=== PATIENT | female | born 1990 | race Asian ===

== ENCOUNTER 2017-01-16 00:01 | Inpatient (IN) | payer SELFPAY ==
[~2017-01-16] VITALS: Ht 162.6 cm; Wt 65.3 kg
[2017-01-16 01:00] VITALS: BP 114/74
[2017-01-16] MEDS ORDERED: CARBOPROST 250 MCG/ML AMP IM PRN (01:00)
[2017-01-16] MEDS ORDERED: OXYTOCIN 10 UNITS/ML VIAL IM SCH (01:00)
[2017-01-16] MEDS ORDERED: OXYTOCIN 20 UNITS/LR PREMIX 1,000 ML IV SCH (01:00)
[2017-01-16] MEDS ORDERED: LACTATED RINGERS 1,000 ML IV SCH (01:00)
[2017-01-16] MEDS ORDERED: METHYLERGONOVINE 0.2 MG/ML AMP IM SCH (01:00)
[2017-01-16] MEDS ORDERED: IBUPROFEN 800 MG TAB PO PRN ×2 (01:00→10:25)
[2017-01-16] MEDS ORDERED: PROMETHAZINE 25 MG/ML VIAL IVP PRN (01:00)
[2017-01-16 01:26] LABS: BASOPHILS # (AUTO) 0.3 K/uL (0.00-0.22); EOSINOPHILS # (AUTO) 0.1 K/uL (0-0.4); EOSINOPHILS % (AUTO) 1.3 % (0.0-4.0); HEMATOCRIT 42.6 % (36-48); HEMOGLOBIN 14.4 g/dL (12.0-16.0); LYMPHOCYTES # (AUTO) 1.8 K/uL (2.5-16.5); LYMPHOCYTES % (AUTO) 18.6 % (20.5-51.1); MEAN CORPUSCULAR HEMOGLOBIN 31 pg (27-31); MEAN CORPUSCULAR HGB CONC 34 g/dL (33-37); MEAN CORPUSCULAR VOLUME 92 fL (80-94); MONOCYTES # (AUTO) 0.5 K/uL (0.8-1.0); MONOCYTES % (AUTO) 5.1 % (1.7-9.3); NEUTROPHILS # (AUTO) 6.8 K/uL (1.8-7.7); PLATELET COUNT (AUTO) 164 K/uL (140-450); RED BLOOD CELL COUNT(AUTO) 4.63 MIL/uL (4.20-5.40); RED CELL DISTRIBUTION WIDTH 13.1 % (11.6-13.7); WHITE BLOOD COUNT (AUTO) 9.5 K/uL (4.8-10.8)
[2017-01-16] MEDS ORDERED: OXYTOCIN 20 UNITS/LR PREMIX 1,000 ML IV ONE (01:35)
[2017-01-16 02:14] LABS: ALBUMIN 2.8 g/dL (3.4-5.0); ANION GAP 18.2 (8-16); CALCIUM 8.9 mg/dL (8.5-10.1); CARBON DIOXIDE 20.7 mmol/L (21-32); CREATININE 0.7 mg/dL (0.6-1.3); POTASSIUM 3.9 mmol/L (3.5-5.1); TOTAL BILIRUBIN 0.6 mg/dL (0.0-1.0); TOTAL PROTEIN, SERUM 6.9 g/dL (6.4-8.2)
[2017-01-16] MEDS ORDERED: NALBUPHINE HYDROCHLORIDE 10 MG/ML VIAL ONE ×2 (02:16→05:38)
[2017-01-16] MEDS ORDERED: PROMETHAZINE 25 MG/ML VIAL ONE (02:17)
[2017-01-16 02:26] LABS: APPEARANCE,URINE HAZY (CLEAR); BILIRUBIN,URINE NEGATIVE (NEGATIVE); BLOOD, URINE TRACE-I (NEGATIVE); COLOR,URINE YELLOW (YELLOW); LEUKOCYTE ESTERASE ,URINE 3+ (NEGATIVE); NITRITE, URINE NEGATIVE (NEGATIVE); PROTEIN,URINE TRACE (NEGATIVE); UGLUCOSE NEGATIVE (NEGATIVE); UROBILINOGEN,URINE 0.2 EU/dL (0.2 - 1)
[2017-01-16 02:58] LABS: HIV RAPID SCREEN NON-REACTIVE (NON REACTIV)
[2017-01-16] MEDS ORDERED: PREN-380 PO (03:39)
[2017-01-16 04:23] LABS: BACTERIA,URINE 4+ /HPF (None Seen); MUCUS,URINE 4+ /LPF (None Seen); WBC,URINE TOO MANY TO COUNT /HPF (0-5)
[2017-01-16] MEDS: NALBUPHINE 10 MG/ML AMP IVP PRN ×2 (04:54→05:34)
[2017-01-16] MEDS ORDERED: OXYTOCIN 10 UNITS/ML VIAL ONE (06:52)
[2017-01-16] MEDS ORDERED: LIDOCAINE 1% 50 ML ONE (06:52)
[2017-01-16] MEDS ORDERED: oxyCODONE/APAP 5/325 MG 1 TAB TAB ONE (10:21)
[2017-01-16] MEDS ORDERED: BENZOCAINE/MENTHOL 20%-0.5% 60 GM CAN TP PRN (10:25)
[2017-01-16] MEDS ORDERED: TEMAZEPAM 15 MG CAP PO PRN (10:25)
[2017-01-16] MEDS ORDERED: METHYLERGONOVINE 0.2 MG/ML AMP IM PRN (10:25)
[2017-01-16] MEDS ORDERED: MEASLES, MUMPS, AND RUBELLA 1 VIAL SQVAC PRN (10:25)
[2017-01-16] MEDS ORDERED: WITCH HAZEL 40 PAD PACKAGE TP PRN (10:25)
[2017-01-16] MEDS: oxyCODONE/APAP 5/325 MG 1 TAB TAB PO PRN ×2 (10:26→20:01)
[2017-01-16 10:37] LABS: RAPID PLASMA REAGIN NON-REACTIVE (Non Reactiv)
[2017-01-16] MEDS: HYDROcodone/APAP 5/325 MG 1 TAB TAB PO PRN (15:15)
[2017-01-16] MEDS ORDERED: HYDROcodone/APAP 5/325 MG 1 TAB TAB ONE (15:17)
[2017-01-16] MEDS ORDERED: DOCUSATE SOD/SENNA 50/8.6 MG 1 TAB PO SCH (21:00)
[2017-01-17] MEDS: HYDROcodone/APAP 5/325 MG 1 TAB TAB PO PRN (02:44)
[2017-01-17 07:01] LABS: HEMATOCRIT 34.2 % (36-48); HEMOGLOBIN 11.2 g/dL (12.0-16.0)
--- NOTE | 2017-01-17 09:18 | NUR ---
PATIENT HAS BEEN SCREENED AND CATEGORIZED LOW NUTRITION RISK. PATIENT WILL BE SEEN WITHIN 7 DAYS OF ADMISSION. 01/22/[address]
== END 2017-01-18 13:15 | disposition home or self-care (01) | DRG 775 ==
LOC: MLD 00:01 → MFCC 15:59
PROVIDERS: ADMIT Obstetrics & Gynecology; ATTEND Obstetrics & Gynecology
PROC: 10E0XZZ Delivery of Products of Conception, External Approach (ICD-10-PCS; principal; 2017-01-16)
PROC: 0KQM0ZZ Repair Perineum Muscle, Open Approach (ICD-10-PCS; 2017-01-16)
PROC: 10907ZC Drainage of Amniotic Fluid, Therapeutic from Products of Conception, Via Natural or Artificial Opening (ICD-10-PCS; 2017-01-16)
DX: O70.1 Second degree perineal laceration during delivery (principal); Z37.0 Single live birth; Z3A.38 38 weeks gestation of pregnancy; Z28.21 Immunization not carried out because of patient refusal
CPT/HCPCS: 36415; 51702; 59409; 80053; 81001; 85018; 85025; 86592; 86886; 86900; 86901; 87086; J2001; J2300; J2550; J2590; J7120